=== PATIENT | female | born 1965 | race Caucasian/White ===

== ENCOUNTER → 2016-12-01 | Day surgery (SDC) | payer BC ==
--- NOTE | 2016-12-02 15:34 | PATH ---
Surgical Pathology Report Patient Name: JORDAN MALAGON [facility]. Rec. #: [id number] /Age/Gender: 1965 (Age: 51) / F Account: [id number] Location: Taken: 12/01/2016 Received: 12/01/2016 Reported: 12/02/2016 Physicians: Xiao Ford, IRRIGATOR HEAD Specimen(s) Received RIGHT BREAST 6:00 1 CM FN CORE BIOPSY Clinical History Ultrasound findings: Suspicious Final Diagnosis BREAST, RIGHT, 6:00, 1 CM FN, CORE BIOPSY: BENIGN BREAST TISSUE SHOWING STROMAL FIBROSIS AND MILD USUAL DUCTAL HYPERPLASIA (UDH). Electronically Signed Vivian Nelson M.D. Gross Description Received in formalin labeled "right breast biopsy 6:00, 1 cmfn," is a 1.7 x 1.1 x 0.2 cm aggregate of multiple scott-yellow, irregular to cylindrical portions of fibroadipose tissue admixed with blood clot. The formalin is filtered and the specimen is entirely submitted in one cassette. Time to formalin fixation: 2 minutes Total formalin fixation time: Approximately 9 hours. /12/01/2016 saudi/12/01/2016
== END | disposition home or self-care (01) ==
LOC: FRADUS-SUR 08:06
PROVIDERS: ATTEND Nurse Practitioner Family
PROC: 0HBT3ZX Excision of Right Breast, Percutaneous Approach, Diagnostic (ICD-10-PCS; principal; 2016-12-01)
DX: N60.31 Fibrosclerosis of right breast (principal); N60.81 Other benign mammary dysplasias of right breast; N63 Unspecified lump in breast
CPT/HCPCS: 19083; 87899; 88305-TC; A4648; G0206-TC